=== PATIENT | female | born 2000 | race Caucasian/White ===

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

== ENCOUNTER 2018-01-02 08:09 | Emergency (ER) | payer SELFPAY ==
[2018-01-02 08:13] VITALS: BP 130/69
--- NOTE | 2018-01-02 08:29 | ER Document Report ---
HPI - HPI Time Seen by Provider: 01/02/18 08:18 Pain Level: 4 Notes: Patient is a 17-year-old female with no significant past medical history who presents to the ED complaining of bilateral intermittent ear pain and sore throat over the last couple weeks. Patient states that she was given a steroid taper that she has since finished from her visit 10 days ago. Patient states that she will hear popping and clicking to her ears with the left worse than the right occasional pain. Patient states that she does have some soreness of the throat more so when she swallows. She has not noticed any exudates or swelling otherwise. Denies any drug allergies. She is able to eat and drink without difficulty aside from the soreness. She is urinating normally. Patient does admit to smoking. No excessive fatigue. Denies any headache, fever , neck pain, dizziness, URI, chest pain, palpitations, syncope, cough, shortness of breath, wheeze, dyspnea, abdominal pain, nausea/vomiting/diarrhea, urinary retention, dysuria, hematuria, or rash. Pt requesting a strep test. - ROS Systems Reviewed and Negative: Yes All other systems reviewed and negative - EENT EENT: REPORTS: Sore Throat, Ear Pain - REPRODUCTIVE Reproductive: DENIES: : Past Medical History - Social History Smoking Status: Current Some Day Smoker Chew tobacco use (# tins/day): No Frequency of alcohol use: Occasional Drug Abuse: Marijuana Family History: Reviewed & Not Pertinent Patient has suicidal ideation: No Patient has homicidal ideation: No Renal/ Medical History: Denies: Hx Peritoneal Dialysis Psychiatric Medical History: Reports: Hx Depression - Immunizations Immunizations up to date: Yes Hx Diphtheria, Pertussis, Tetanus Vaccination: Yes Vertical Provider Document - CONSTITUTIONAL Agree With Documented VS: Yes Notes: PHYSICAL EXAMINATION: GENERAL: Well-appearing, well-nourished and in no acute distress. A&Ox4. Answers questions appropriately. Moves comfortably w/o notable distress HEAD: Atraumatic, normocephalic. EYES: Pupils equal round and reactive to light, extraocular movements intact, sclera anicteric, conjunctiva are normal. ENT: EAC clear b/l. TM's intact b/l without erythema, fluid, or perforation. There is some dullness b/l. Nares patent and with clear discharge. oropharynx mild erythema without exudates. 1+ tonsilar hypertrophy with mild erythema no exudate. No palatine shift. Uvula midline. No tongue protrusion. No drooling , hoarseness, or airway compromise. Moist mucous membranes. No sinus tenderness. NECK: Normal range of motion, supple without lymphadenopathy. No rigidity/ meningismus. LUNGS: Breath sounds clear to auscultation bilaterally and equal. No wheezes rales or rhonchi. No retractions HEART: Regular rate and rhythm without murmurs, rubs, gallops. ABDOMEN: Soft, nontender, nondistended abdomen. No guarding, no rebound. No masses appreciated. Normal bowel sounds present. No CVA tenderness bilaterally. No hepatosplenomegaly. NEUROLOGICAL: Normal speech, normal gait. PSYCH: Normal mood, normal affect. SKIN: Warm, Dry, normal turgor, no rashes or lesions noted. - INFECTION CONTROL TRAVEL OUTSIDE OF THE [place] IN LAST 30 DAYS: No Course - Re-evaluation Re-evalutation: 01/02/18 09:13 Patient is an afebrile, well-hydrated, 17-year-old female who presents to the ED with otalgia, suspect eustachian tube dysfunction, acute pharyngitis which I suspect to be viral. Vitals are acceptable without significant tachycardia, tachypnea, or hypoxia. PE is otherwise unremarkable. Rapid strep was negative with a throat culture pending. No further labs or imaging warranted at this time. Patient is nontoxic-appearing and is tolerating p.o. without difficulty. Patient has recently finished a steroid taper from previous visit. Her lungs are clear to auscultation bilaterally. Low suspicion for any meningitis, sepsis , peritonsillar/pharyngeal abscess, respiratory compromise, Cornelius's, or other emergent systemic condition at this time. Patient is aware this condition can change from initial presentation and she needs to monitor symptoms closely. Conservative measures otherwise for symptoms. Recheck with your PCM in 3-5 days. Consider consult with ENT. Return to the ED with any worsening/ concerning symptoms otherwise as reviewed in discharge. Patient is in agreement. - Vital Signs Vital signs: Temp Pulse Resp BP Pulse Ox 98.7 F 88 18 130/69 H 95 01/02/18 08:11 01/02/18 08:11 01/02/18 08:11 01/02/18 08:11 01/02/18 08:11 Discharge - Discharge Clinical Impression: Otalgia of both ears Acute pharyngitis Qualifiers: Pharyngitis/tonsillitis etiology: unspecified etiology Qualified Code(s): J02.9 - Acute pharyngitis, unspecified Condition: Stable Disposition: HOME, SELF-CARE Instructions: Sore Throat ([facility]) Additional Instructions: Maintain adequate fluid intake Take meds as directed Salt water gargles, throat sprays, mouthwash rinse, peroxide gargles tylenol/ibuprofen as needed New toothbrush tomorrow evening over the counter cold medication as needed for symptoms (i.e. mucinex with sudafed) F/u: with your PCM in 3-5 days for a recheck Consider consult with ENT for ongoing/worsening symptoms Return to the ED with any fever, worsening pain, chest pain, neck pain/stiffness , shortness of breath, cough, drooling, trouble swallowing/breathing, abdominal pain, n/v/d, rash, or worsening/concerning symptoms otherwise. Forms: Elevated Blood Pressure, Smoking Cessation Education Referrals: JANIE RAMIREZ DO [ASSOCIATE] - Follow up as needed LEONEL NOLAN MD [Primary Care Provider] - Follow up in 3-5 days
== END 2018-01-02 09:23 | disposition home or self-care (01) ==
LOC: ER 08:09
DX: J02.9 Acute pharyngitis, unspecified (principal); H92.03 Otalgia, bilateral; F17.200 Nicotine dependence, unspecified, uncomplicated
CPT/HCPCS: 87070; 87880; 99283

== ENCOUNTER 2018-04-16 07:46 | Emergency (ER) | payer MEDICAID ==
--- NOTE | 2018-04-16 09:20 | ER Document Report ---
Addendum entered and electronically signed by VERONIKA QUISPE PA-C 04/16/18 10:22: Course - Re-evaluation Re-evalutation: 04/16/18 10:22 pt did end up providing chlam/raimundo urine sample, but does not want pre-treated. - Vital Signs Vital signs: Temp Pulse Resp BP Pulse Ox 99.2 F 89 16 135/66 H 98 04/16/18 07:56 04/16/18 07:56 04/16/18 07:56 04/16/18 07:56 04/16/18 07:56 - Laboratory Laboratory results interpreted by me: 04/16/18 07:50 Ur Leukocyte Esterase MODERATE H Original Note: ED General - General Chief Complaint: Abdominal Pain Stated Complaint: PELVIC PAIN Time Seen by Provider: 04/16/18 08:47 Primary Care Provider: LEONEL NOLAN MD [Primary Care Provider] - Follow up as needed TRAVEL OUTSIDE OF THE [place] IN LAST 30 DAYS: No - HPI Notes: Patient is a 17-year-old female approximately 15 weeks who presents the emergency department complaining of feeling pelvic tightness this morning. Patient states that she has had intermittent pain for the last 1-2 weeks. Patient states that she did have some spotting several days ago. She has [facility]. Patient states that the tightness has since improved. She is eating and drinking without difficulty. She is urinating normally and having normal bowel movements. She has not had any other vaginal discharge, odor, or bleeding. Patient has no concern of STD or STI. Denies drug allergies. Denies any headache, fever, neck pain, URI, sore throat, chest pain, palpitations, syncope, cough, shortness of breath, wheeze, dyspnea, nausea/vomiting/diarrhea, urinary retention, dysuria, hematuria, back pain, loss of control of bowel or bladder, numbness/tingling, saddle anesthesia, muscle paralysis/weakness, or rash. - Related Data Allergies/Adverse Reactions: No Known Allergies Allergy (Verified 04/16/18 07:57) Past Medical History - Social History Smoking Status: Former Smoker Chew tobacco use (# tins/day): No Frequency of alcohol use: None Drug Abuse: None Family History: Reviewed & Not Pertinent Patient has suicidal ideation: No Patient has homicidal ideation: No Renal/ Medical History: Denies: Hx Peritoneal Dialysis Psychiatric Medical History: Reports: Hx Depression - Immunizations Immunizations up to date: Yes Hx Diphtheria, Pertussis, Tetanus Vaccination: Yes Review of Systems - Review of Systems -: Yes All other systems reviewed and negative Physical Exam - Vital signs Vitals: Temp Pulse Resp BP Pulse Ox 99.2 F 89 16 135/66 H 98 04/16/18 07:56 04/16/18 07:56 04/16/18 07:56 04/16/18 07:56 04/16/18 07:56 - Notes Notes: PHYSICAL EXAMINATION: GENERAL: Well-appearing, well-nourished and in no acute distress. HEAD: Atraumatic, normocephalic. EYES: Pupils equal round and reactive to light, extraocular movements intact, sclera anicteric, conjunctiva are normal. ENT: Nares patent and without discharge. oropharynx clear without exudates. No tonsilar hypertrophy or erythema. Moist mucous membranes. NECK: Normal range of motion, supple without lymphadenopathy LUNGS: Breath sounds clear to auscultation bilaterally and equal. No wheezes rales or rhonchi. HEART: Regular rate and rhythm without murmurs, rubs, gallops. ABDOMEN: Soft, nontender, nondistended abdomen. No guarding, no rebound. No masses appreciated. Normal bowel sounds present. No CVA tenderness bilaterally. : deferred, pt declined. Musculoskeletal: FROM to passive/active. Strength 5+/5. Extremities: No cyanosis, clubbing, or edema b/l. Peripheral pulses 2+. Capillary refill less than 3 seconds. NEUROLOGICAL: Normal speech, normal gait. PSYCH: Normal mood, normal affect. SKIN: Warm, Dry, normal turgor, no rashes or lesions noted. Course - Re-evaluation Re-evalutation: 04/16/18 10:16 Patient is an afebrile, well-hydrated, 17-year-old female who presents to the ED with resolved pelvic pain, yeast infxn, and intrauterine . Vitals are acceptable without any significant tachycardia, tachypnea, or hypoxia. PE is otherwise unremarkable. UA most likely contaminate based on her H&P with UC pending. See TVUS and wet mount. Pt declined any treatment for chlam/raimundo and did not want to perform any testing. Patient is nontoxic-appearing is tolerating p.o. without any difficulties. No other labs or imaging warranted at this time based on H&P. Abd is soft and non-tender. Low suspicion/risk for acute appendicitis, bowel obstruction, acute cholecystitis, acute cholangitis, perforated diverticulitis, incarcerated hernia, pancreatitis, perforated ulcer, peritonitis, sepsis, pelvic inflammatory disease, ectopic , tubo- ovarian abscess, ovarian torsion, or other systemic emergent condition at this time. Patient is aware that her condition can change from initial presentation and she needs to monitor symptoms closely and seek medical attention if any acute changes. Rx for clotrimazole vaginal. Conservative measures otherwise for symptoms. Recheck with your PCM/OBGYN in 3-5 days. Return to the ED with any worsening/concerning symptoms otherwise as reviewed in discharge. Patient is in agreement. - Vital Signs Vital signs: Temp Pulse Resp BP Pulse Ox 99.2 F 89 16 135/66 H 98 04/16/18 07:56 04/16/18 07:56 04/16/18 07:56 04/16/18 07:56 04/16/18 07:56 - Laboratory Laboratory results interpreted by me: 04/16/18 07:50 Ur Leukocyte Esterase MODERATE H Discharge - Discharge Clinical Impression: Vaginal yeast infection, Pelvic pain Condition: Stable Disposition: HOME, SELF-CARE Instructions: Pelvic Pain in ([facility]), Vaginal Yeast Infection ([facility]) Additional Instructions: Maintain fluid intake Proper hygienic technique Keep the skin clean Safe sexual practices with condoms everytime Tylenol as needed F/u with your PCM/OBGYN in 3-5 days for a recheck Return to the ED with any development of ABBOTT/fever, trouble with vision, eye redness, worsening pain, urethral discharge, urinary retention, blood in the urine, flank pain, abdominal pain, n/v, Chest Pain, shortness of breath, joint pains, trouble breathing, or any other worsening/concerning symptoms as needed otherwise. Prescriptions: Clotrimazole 1 applic VG DAILY #1 cream.appl Forms: Elevated Blood Pressure Referrals: LEONEL NOLAN MD [Primary Care Provider] - Follow up as needed [facility] [Provider Group] - Follow up as needed
[2018-04-16 09:24] LABS: APPEARANCE,URINE CLOUDY; BILIRUBIN,URINE NEGATIVE (NEGATIVE); COLOR,URINE YELLOW; GLUCOSE, URINE NEGATIVE (NEGATIVE); KETONES,URINE NEGATIVE (NEGATIVE); LEUKOCYTE ESTERASE,URINE MODERATE (NEGATIVE); NITRITE,URINE NEGATIVE (NEGATIVE); PROTEIN,URINE NEGATIVE (NEGATIVE); URINE SPECIFIC GRAVITY 1.015; UROBILINOGEN,URINE NEGATIVE mg/dL (<2.0)
[2018-04-16 09:26] LABS: BACTERIA (WET MOUNT) 3+ BACTERIA SEEN; EPITHELIALS (WET MOUNT) 4+ EPITHELIALS SEEN; RBCS (WET MOUNT) RARE RBCS SEEN; T.VAGINALIS (WET MOUNT) NO TRICHOMONAS SEEN; WBCS (WET MOUNT) 2+ WBCS SEEN; YEAST (WET MOUNT) YEAST SEEN
--- NOTE | 2018-04-16 10:14 | RADIOLOGY REPORT (SQ) ---
EXAM DESCRIPTION: U/S OB 14+ TA/1 GEST W/DOPPLER COMPLETED DATE/TIME: 04/16/2018 10:00 am REASON FOR STUDY: pelvic pain, approx 15 weeks COMPARISON: None. TECHNIQUE: Static and Dynamic grayscale imaging performed of gravid uterus using transabdominal appr oach. Additional selected color Doppler and spectral images recorded. All stored on PACS. LIMITATIONS: None. FINDINGS: FETUSES SEEN:1 EGA: 15 weeks 0 days Calculated using BPD,FL,HC,AC documented on images. No discrepancy with clinica l dates. RAMU: 10/08/2018 EFW: Not calculated PERCENTILE: Not calculated CHERELLE: Largest pocket 3 cm PLACENTA: Posterior grade 1 PRESENTATION: Breech ANATOMY: HEART RATE: 157 beats per minute. FOUR CHAMBER HEART: Visualized. THREE VESSEL CORD: Yes. CORD INSERTION: Visualized. KIDNEYS AND BLADDER: Not well seen STOMACH: Visualized. Appears normal. SPINE: Normal as visualized. BRAIN AND LATERAL VENTRICLES: Visualized. Appear normal. OTHER: No other significant finding. MATERNAL ADNEXA: Maternal ovaries not visualized. CERVICAL LENGTH: 2.1 cm Closed. OTHER: No other significant finding. IMPRESSION: LIVING INTRAUTERINE . ESTIMATED GESTATIONAL AGE 15 weeks 0 days NO VISUALIZED ANOMALIES. Trimester of : Second trimester - 13 weeks 1 day to 27 weeks 6 days. TECHNICAL DOCUMENTATION: JOB ID: [id number] [employer]- All Rights Reserved Reading location - IP/workstation name: [email or web address]
[2018-04-16 10:36] VITALS: BP 130/57
[2018-04-16 11:46] LABS: CHLAM PCR NOT DETECTED (NOT DETECT); GON PCR NOT DETECTED (NOT DETECT)
== END 2018-04-16 10:38 | disposition home or self-care (01) ==
LOC: ER 07:46
DX: O98.812 Other maternal infectious and parasitic diseases complicating pregnancy, second trimester (principal); B37.3 Candidiasis of vulva and vagina; R10.2 Pelvic and perineal pain; Z3A.15 15 weeks gestation of pregnancy
CPT/HCPCS: 76805; 81001; 87086; 87210; 87491; 87591; 93976; 99284

== ENCOUNTER 2018-05-29 00:53 | Outpatient (CLI) | payer MEDICAID ==
[2018-05-29 02:04] LABS: APPEARANCE,URINE CLEAR; BILIRUBIN,URINE NEGATIVE (NEGATIVE); COLOR,URINE YELLOW; GLUCOSE, URINE NEGATIVE (NEGATIVE); KETONES,URINE NEGATIVE (NEGATIVE); LEUKOCYTE ESTERASE,URINE NEGATIVE (NEGATIVE); NITRITE,URINE NEGATIVE (NEGATIVE); PROTEIN,URINE NEGATIVE (NEGATIVE); URINE SPECIFIC GRAVITY 1.014; UROBILINOGEN,URINE NEGATIVE mg/dL (<2.0)
[2018-05-29 02:40] LABS: URINE AMPHETAMINES SCREEN NEGATIVE; URINE BARBITURATES SCREEN NEGATIVE; URINE BENZODIAZEPINES SCREEN NEGATIVE; URINE COCAINE SCREEN NEGATIVE; URINE METHADONE SCREEN NEGATIVE; URINE PHENCYCLIDINE SCREEN NEGATIVE
[2018-05-29 02:50] LABS: URINE MARIJUANA (THC) SCREEN UNCONFIRMED POSITIVE
== END 2018-05-29 02:38 | disposition home or self-care (01) ==
LOC: LC 00:53
PROVIDERS: ATTEND Obstetrics & Gynecology Gynecology
PROC: 4A1HXCZ Monitoring of Products of Conception, Cardiac Rate, External Approach (ICD-10-PCS; principal; 2018-05-29)
DX: O26.892 Other specified pregnancy related conditions, second trimester (principal); R10.9 Unspecified abdominal pain; Z3A.20 20 weeks gestation of pregnancy
CPT/HCPCS: 80307; 81001

== ENCOUNTER 2018-07-08 16:51 | Outpatient (CLI) | payer MEDICAID ==
[2018-07-08 17:37] LABS: APPEARANCE,URINE CLOUDY; BILIRUBIN,URINE NEGATIVE (NEGATIVE); COLOR,URINE YELLOW; GLUCOSE, URINE NEGATIVE (NEGATIVE); KETONES,URINE NEGATIVE (NEGATIVE); LEUKOCYTE ESTERASE,URINE MODERATE (NEGATIVE); NITRITE,URINE NEGATIVE (NEGATIVE); PROTEIN,URINE NEGATIVE (NEGATIVE); URINE SPECIFIC GRAVITY 1.017; UROBILINOGEN,URINE NEGATIVE mg/dL (<2.0)
[2018-07-08] MEDS ORDERED: ONDANSETRON HCL INJ/PF 4 MG/2 ML SDV IV ONE (17:43)
[2018-07-08] MEDS ORDERED: RINGERS SOLUTION,LACTATED 1,000 ML IV PRN (17:43)
[2018-07-08 17:46] LABS: URINE AMPHETAMINES SCREEN NEGATIVE; URINE BARBITURATES SCREEN NEGATIVE; URINE BENZODIAZEPINES SCREEN NEGATIVE; URINE COCAINE SCREEN NEGATIVE; URINE METHADONE SCREEN NEGATIVE; URINE PHENCYCLIDINE SCREEN NEGATIVE
[2018-07-08 17:51] LABS: URINE MARIJUANA (THC) SCREEN UNCONFIRMED POSITIVE
[2018-07-08 18:28] LABS: ABSOLUTE LYMPHOCYTES (AUTO) 2.1 10^3/uL (0.5-4.7); ABSOLUTE MONOCYTES (AUTO) 0.8 10^3/uL (0.1-1.4); ABSOLUTE NEUT (AUTO) 7.6 10^3/uL (1.7-8.2); BASOPHILS % (AUTO) 0.3 % (0-2); EOSINOPHILS % (AUTO) 0.4 % (0-6); HEMATOCRIT 31.5 % (36.0-47.0); HEMOGLOBIN 10.7 g/dL (12.0-15.5); LYMPHOCYTES % (AUTO) 20.1 % (13-45); MEAN CORPUSCULAR HEMOGLOBIN 28.1 pg (27.0-33.4); MEAN CORPUSCULAR HGB CONC 33.8 g/dL (32.0-36.0); MEAN CORPUSCULAR VOLUME 83 fl (80-97); MONOCYTES % (AUTO) 7.2 % (3-13); PLATELET COUNT 252 10^3/uL (150-450); RED BLOOD COUNT 3.79 10^6/uL (3.72-5.28); RED CELL DISTRIBUTION WIDTH 12.5 % (11.5-14.0); TOTAL CELLS COUNTED % (AUTO) 100 %; WHITE BLOOD COUNT 10.5 10^3/uL (4.0-10.5)
== END 2018-07-08 19:12 | disposition home or self-care (01) ==
LOC: LC 16:51
PROVIDERS: ATTEND Obstetrics & Gynecology
PROC: 4A1HXCZ Monitoring of Products of Conception, Cardiac Rate, External Approach (ICD-10-PCS; principal; 2018-07-08)
DX: O47.02 False labor before 37 completed weeks of gestation, second trimester (principal); Z3A.26 26 weeks gestation of pregnancy
CPT/HCPCS: 36415; 80307; 81001; 85025

== ENCOUNTER 2018-08-09 17:16 | Emergency (ER) | payer MEDICAID ==
[2018-08-09 17:27] VITALS: BP 123/71
== END 2018-08-09 20:42 | disposition left against medical advice (07) ==
LOC: ER 17:16
DX: Z53.21 Procedure and treatment not carried out due to patient leaving prior to being seen by health care provider (principal)

== ENCOUNTER 2018-09-25 10:44 | Outpatient (CLI) | payer MEDICAID ==
[2018-09-25 12:22] LABS: APPEARANCE,URINE SLIGHTLY-CLOUDY; BILIRUBIN,URINE NEGATIVE (NEGATIVE); COLOR,URINE YELLOW; GLUCOSE, URINE NEGATIVE (NEGATIVE); KETONES,URINE NEGATIVE (NEGATIVE); LEUKOCYTE ESTERASE,URINE MODERATE (NEGATIVE); NITRITE,URINE NEGATIVE (NEGATIVE); PROTEIN,URINE NEGATIVE (NEGATIVE); URINE SPECIFIC GRAVITY 1.014; UROBILINOGEN,URINE NEGATIVE mg/dL (<2.0)
[2018-09-25 13:10] LABS: URINE AMPHETAMINES SCREEN NEGATIVE; URINE BARBITURATES SCREEN NEGATIVE; URINE BENZODIAZEPINES SCREEN NEGATIVE; URINE COCAINE SCREEN NEGATIVE; URINE MARIJUANA (THC) SCREEN NEGATIVE; URINE METHADONE SCREEN NEGATIVE; URINE PHENCYCLIDINE SCREEN NEGATIVE
--- NOTE | 2018-09-25 13:59 | Non Stress Test Report ---
Non Stress Test Datetime Report Generated by CPN: 09/25/2018 13:59 DEMOGRAPHIC EGA NST: 37.4 INDICATION Indication for Study: Other Indication for Study (NST) Other: lc MONITORING Monitor Explained: Monitor Explained; Test Explained; Patient Verbalized Understanding Time on Monitor: 09/25/2018 12:30 Time off Monitor: 09/25/2018 13:56 NST Duration: 86 NST INTERVENTIONS NST Interventions: PO Hydration; Reposition Patient Physician Notified NST: J Valladares CNM BABY A: [id number] BABY A Movement : Present Contraction Frequency : 0 FHR Baseline : 125 Accelerations : 15X15 Decelerations : None Variability : Moderate 6-25bpm NST Review: Meets Criteria for Reactive NST NST Review and Verified By : JENNIFER Ugarte Results: Reactive NST REPORT Report Trigger: Send Report
== END 2018-09-25 14:15 | disposition home or self-care (01) ==
LOC: LC 10:44
PROVIDERS: ATTEND Obstetrics & Gynecology
PROC: 4A1HXCZ Monitoring of Products of Conception, Cardiac Rate, External Approach (ICD-10-PCS; principal; 2018-09-25)
DX: O47.1 False labor at or after 37 completed weeks of gestation (principal); Z3A.37 37 weeks gestation of pregnancy
CPT/HCPCS: 59025; 80307; 81001

== ENCOUNTER 2018-10-07 22:05 | Outpatient (CLI) | payer MEDICAID ==
[2018-10-07 22:31] LABS: APPEARANCE,URINE CLEAR; BILIRUBIN,URINE NEGATIVE (NEGATIVE); COLOR,URINE YELLOW; GLUCOSE, URINE NEGATIVE (NEGATIVE); KETONES,URINE NEGATIVE (NEGATIVE); LEUKOCYTE ESTERASE,URINE NEGATIVE (NEGATIVE); NITRITE,URINE NEGATIVE (NEGATIVE); PROTEIN,URINE NEGATIVE (NEGATIVE); URINE SPECIFIC GRAVITY 1.013
[2018-10-07 22:53] LABS: URINE AMPHETAMINES SCREEN NEGATIVE; URINE BARBITURATES SCREEN NEGATIVE; URINE BENZODIAZEPINES SCREEN NEGATIVE; URINE COCAINE SCREEN NEGATIVE; URINE MARIJUANA (THC) SCREEN NEGATIVE; URINE METHADONE SCREEN NEGATIVE; URINE PHENCYCLIDINE SCREEN NEGATIVE
[2018-10-07] MEDS: RINGERS SOLUTION,LACTATED 1,000 ML IV PRN (23:44)
--- NOTE | 2018-10-08 02:31 | RADIOLOGY REPORT (SQ) ---
EXAM DESCRIPTION: US BIOPHYSICAL PROFILE WITHOUT NON STRESS TEST COMPLETED DATE/TME: 10/08/2018 00:47 CLINICAL HISTORY: 18 years, Female, non reactive NST COMPARISON: None. TECHNIQUE: Standard biophysical profile LIMITATIONS: None. FINDINGS: breathing: Score 2 of 2 tone: Score 2 of 2 movement: Score 2 of 2 Amniotic fluid volume: Score 2 of 2 IMPRESSION: biophysical profile score 8 of 8 copyright 2010 [employer]- All Rights Reserved
[2018-10-08] MEDS: RINGERS SOLUTION,LACTATED 1,000 ML IV PRN (02:58)
--- NOTE | 2018-10-08 04:11 | Non Stress Test Report ---
Non Stress Test Datetime Report Generated by CPN: 10/08/2018 04:11 DEMOGRAPHIC EGA NST: 39.6 INDICATION Indication for Study: Ordered by Provider; Other Indication for Study (NST) Other: LC URINE RESULTS Urine Protein, NST: Negative Urine Ketones - NST: Negative Urine Glucose - NST: Negative Urine Blood - NST: Negative MONITORING Monitor Explained: Monitor Explained; Test Explained; Patient Verbalized Understanding Time on Monitor: 10/07/2018 23:48 Time off Monitor: 10/08/2018 00:12 NST Duration: 24 NST INTERVENTIONS NST Interventions: PO Hydration; IV Fluids; Other NST Interventions Other: popsicle Physician Notified NST: Younger BABY A: [id number] BABY A Movement : Present Contraction Frequency : OCC FHR Baseline : 135 Accelerations : 15X15 Decelerations : None Variability : Moderate 6-25bpm NST Review: Questionable if Meets Criteria for Reactive NST NST Review and Verified By : Chalman, A. RN NST Results: Questionable NST COMMENTS NST Comments: 1 15 x 15 noted NST REPORT Report Trigger: Send Report
== END 2018-10-08 03:25 | disposition home or self-care (01) ==
LOC: LC 22:05
PROVIDERS: ATTEND Obstetrics & Gynecology
PROC: 4A1HXCZ Monitoring of Products of Conception, Cardiac Rate, External Approach (ICD-10-PCS; principal; 2018-10-07)
DX: O47.1 False labor at or after 37 completed weeks of gestation (principal); Z3A.39 39 weeks gestation of pregnancy
CPT/HCPCS: 59025; 76819; 80307; 81005

== ENCOUNTER 2019-04-18 09:04 | Emergency (ER) | payer MEDICAID ==
[2019-04-18 09:54] LABS: APPEARANCE,URINE CLEAR; BILIRUBIN,URINE NEGATIVE (NEGATIVE); COLOR,URINE YELLOW; GLUCOSE, URINE NEGATIVE (NEGATIVE); KETONES,URINE TRACE mg/dL (NEGATIVE); LEUKOCYTE ESTERASE,URINE TRACE (NEGATIVE); NITRITE,URINE NEGATIVE (NEGATIVE); PROTEIN,URINE NEGATIVE (NEGATIVE); URINE SPECIFIC GRAVITY 1.016; UROBILINOGEN,URINE NEGATIVE mg/dL (<2.0)
[2019-04-18] MEDS ORDERED: ACETAMINOPHEN 325 MG TABLET PO ONE (12:18)
[2019-04-18] MEDS ORDERED: NORMAL SALINE 1000 ML 1,000 ML IV ONE (12:22)
[2019-04-18 12:28] LABS: ABSOLUTE BASOPHILS # (AUTO) 0.1 10^3/uL (0.0-0.2); ABSOLUTE LYMPHOCYTES (AUTO) 2.2 10^3/uL (0.5-4.7); ABSOLUTE MONOCYTES (AUTO) 0.9 10^3/uL (0.1-1.4); ABSOLUTE NEUT (AUTO) 6.9 10^3/uL (1.7-8.2); BASOPHILS % (AUTO) 0.5 % (0-2); EOSINOPHILS % (AUTO) 0.3 % (0-6); HEMOGLOBIN 11.1 g/dL (12.0-15.5); LYMPHOCYTES % (AUTO) 21.7 % (13-45); MEAN CORPUSCULAR HEMOGLOBIN 27.7 pg (27.0-33.4); MEAN CORPUSCULAR HGB CONC 34.9 g/dL (32.0-36.0); MEAN CORPUSCULAR VOLUME 80 fl (80-97); MONOCYTES % (AUTO) 8.5 % (3-13); PLATELET COUNT 276 10^3/uL (150-450); RED BLOOD COUNT 4.02 10^6/uL (3.72-5.28); RED CELL DISTRIBUTION WIDTH 13.6 % (11.5-14.0); TOTAL CELLS COUNTED % (AUTO) 100 %
[2019-04-18 12:50] LABS: ANION GAP 8 (5-19); BLOOD UREA NITROGEN 5 mg/dL (7-20); CALCIUM 9.1 mg/dL (8.4-10.2); CARBON DIOXIDE 24 mmol/L (22-30); CHLORIDE 105 mmol/L (98-107); GLUCOSE 89 mg/dL (75-110)
--- NOTE | 2019-04-18 13:32 | RADIOLOGY REPORT (SQ) ---
EXAM DESCRIPTION: U/S OB TRANSVAGINAL W/O DOP COMPLETED DATE/TIME: 04/18/2019 1:22 pm REASON FOR STUDY: , bleeding, no previous US COMPARISON: None. TECHNIQUE: Transabdominal static and realtime grayscale images acquired of the pelvis. Additional se lected spectral and color Doppler images recorded. All images stored on PACs. bHCG: Pending. CLINICAL DATES: Not reported. LIMITATIONS: None. FINDINGS: FETUS: Single Living intrauterine . ULTRASOUND EGA: 13 week 3 day ULTRASOUND RAMU: 10/21/2019 EFW: Not applicable less than 20 weeks. CRL: 7.3 cm FHR: 150 beats per minute. SURVEY: Too early to assess. AMNIOTIC FLUID: Adequate amount. PLACENTA: Developing. SUBCHORIONIC BLEED: No. SIZE OF BLEED: Not applicable. UTERUS: No masses. No anomalies. CERVICAL LENGTH: 3.5 cm Closed. RIGHT ADNEXA: Normal ovary with normal vascular flow. No adnexal free fluid. No adnexal masses. LEFT ADNEXA: Ovary not identified due to poor acoustical window. No adnexal free fluid. No adnexal masses. FREE FLUID: None. OTHER: No other significant finding. IMPRESSION: LIVING INTRAUTERINE . EGA 13 week 3 day Trimester of : Second trimester - 13 weeks 1 day to 27 weeks 6 days. TECHNICAL DOCUMENTATION: JOB ID: [id number] 2010 [employer]- All Rights Reserved Reading location - IP/workstation name: [email or web address]
[2019-04-18 14:37] VITALS: BP 118/68
--- NOTE | 2019-04-18 18:28 | ER Document Report ---
Entered by HOLGER CARDENAS SCRIBE 04/18/19 1046 Acting as scribe for:CLAYTON MAGAÑA DO ED GI/ - General Chief Complaint: Vaginal Bleeding Stated Complaint: VAGINAL BLEEDING Time Seen by Provider: 04/18/19 10:14 Primary Care Provider: [facility] [Provider Group] - Follow up in 1 week Mode of Arrival: Ambulatory Information source: Patient Notes: This 18-year-old female patient presents to the emergency department today with complaints of vaginal spotting. Patient states that she is 13 weeks and 3 days . Patient states she has had "on and off" spotting for the last few days. Patient states she has not had an ultrasound performed she has "just heard the heartbeat". Patient denies fevers. TRAVEL OUTSIDE OF THE [place] IN LAST 30 DAYS: No - Related Data Allergies/Adverse Reactions: No Known Allergies Allergy (Verified 10/08/18 11:33) Home Medications: vits Past Medical History - General Information source: Patient - Social History Smoking Status: Former Smoker Cigarette use (# per day): No Chew tobacco use (# tins/day): No Frequency of alcohol use: None Drug Abuse: None Lives with: Family Family History: Reviewed & Not Pertinent Patient has suicidal ideation: No Patient has homicidal ideation: No Psychiatric Medical History: Reports: Hx Depression - Immunizations Immunizations up to date: Yes Hx Diphtheria, Pertussis, Tetanus Vaccination: Yes Review of Systems - Review of Systems Constitutional: denies: Fever EENT: No symptoms reported Cardiovascular: No symptoms reported Respiratory: No symptoms reported Gastrointestinal: See HPI, Abdominal pain - cramping Genitourinary: No symptoms reported Female Genitourinary: See HPI, , Vaginal bleeding - spotting Musculoskeletal: No symptoms reported Skin: No symptoms reported Hematologic/Lymphatic: No symptoms reported Neurological/Psychological: No symptoms reported -: Yes All other systems reviewed and negative Physical Exam - Vital signs Vitals: Temp Pulse Resp BP Pulse Ox 98.7 F 92 20 138/68 H 98 04/18/19 09:14 04/18/19 09:14 04/18/19 09:14 04/18/19 09:14 04/18/19 09:14 - Notes Notes: Physical Exam: General: Alert, appears well. HEENT: Normocephalic. Atraumatic. PERRL. Extraocular movements intact. Oropharynx clear. Neck: Supple. Non-tender. Respiratory: No respiratory distress. Clear and equal breath sounds bilaterally. Cardiovascular: Regular rate and rhythm. Abdominal: No abdominal tenderness with palpation, tenderness to palpation over the right inguinal area, obese. No distension. Normal Bowel Sounds. Back: No gross abnormalities. Extremities: Moves all four extremities. Upper extremities: Normal inspection. Normal ROM. Lower extremities: Normal inspection. No edema. Normal ROM. Neurological: Normal cognition. AAOx4. Normal speech. Psychological: Normal affect. Normal Mood. Skin: Warm. Dry. Normal color. Course - Re-evaluation Re-evalutation: 04/18/19 18:27 Patient with no acute findings on blood work. Ultrasound showing 13-week and 3- day . No complications. Pain likely from round ligament. No further bleeding. No concern for STDs. Patient is O+. Stable for discharge. Return if any worsening or concerning symptoms. Stable for discharge. Follow-up with OB. Understands agrees with plan. - Vital Signs Vital signs: Temp Pulse Resp BP Pulse Ox 98.1 F 81 18 118/68 98 04/18/19 14:35 04/18/19 14:35 04/18/19 14:35 04/18/19 14:35 04/18/19 14:35 - Laboratory Result Diagrams: 04/18/19 11:33 04/18/19 11:33 Laboratory results interpreted by me: 04/18/19 04/18/19 04/18/19 09:42 09:42 11:33 Hgb Hct Sodium 136.9 L BUN 5 L Creatinine 0.42 L Beta HCG, Quant 88972.00 H Urine Ketones TRACE H Ur Leukocyte Esterase TRACE H Urine HCG, Qual POSITIVE H 04/18/19 11:33 Hgb 11.1 L Hct 32.0 L Sodium BUN Creatinine Beta HCG, Quant Urine Ketones Ur Leukocyte Esterase Urine HCG, Qual - Diagnostic Test Radiology reviewed: Reports reviewed Discharge - Discharge Clinical Impression: Bleeding in early Condition: Stable Disposition: HOME, SELF-CARE Instructions: Bleeding During Early ([facility]), ([facility]) Referrals: [facility] [Provider Group] - Follow up in 1 week I personally performed the services described in the documentation, reviewed and edited the documentation which was dictated to the scribe in my presence, and it accurately records my words and actions.
== END 2019-04-18 14:35 | disposition home or self-care (01) ==
LOC: ER 09:04
DX: O26.851 Spotting complicating pregnancy, first trimester (principal); O26.891 Other specified pregnancy related conditions, first trimester; R10.9 Unspecified abdominal pain; Z3A.13 13 weeks gestation of pregnancy; Z79.899 Other long term (current) drug therapy; Z87.891 Personal history of nicotine dependence
CPT/HCPCS: 99284; 96360; 86900; 86901; 36415; 84702; 85025; 81025; 80048; 81001; 76817; J3490; J7030

== ENCOUNTER 2019-10-01 19:19 | Inpatient (IN) | payer MEDICAID ==
[2019-10-01 19:59] LABS: APPEARANCE,URINE SLIGHTLY-CLOUDY; BILIRUBIN,URINE NEGATIVE (NEGATIVE); COLOR,URINE YELLOW; GLUCOSE, URINE NEGATIVE (NEGATIVE); KETONES,URINE NEGATIVE (NEGATIVE); LEUKOCYTE ESTERASE,URINE SMALL (NEGATIVE); NITRITE,URINE NEGATIVE (NEGATIVE); PROTEIN,URINE NEGATIVE (NEGATIVE); URINE SPECIFIC GRAVITY 1.011
[2019-10-01 20:18] LABS: URINE AMPHETAMINES SCREEN NEGATIVE; URINE BARBITURATES SCREEN NEGATIVE; URINE BENZODIAZEPINES SCREEN NEGATIVE; URINE COCAINE SCREEN NEGATIVE; URINE MARIJUANA (THC) SCREEN NEGATIVE; URINE METHADONE SCREEN NEGATIVE; URINE PHENCYCLIDINE SCREEN NEGATIVE
[2019-10-01] MEDS ORDERED: RINGERS SOLUTION,LACTATED 1,000 ML IV ONE (20:32)
[2019-10-01] MEDS ORDERED: RINGERS SOLUTION,LACTATED 1,000 ML IV PRN (20:32)
[2019-10-01] MEDS ORDERED: PENICILLIN G POTASSIUM 5,000,000 UNIT in DEXTROSE 5%-WATER 100 ML IV ONE (21:00)
[2019-10-01 21:51] LABS: ABSOLUTE LYMPHOCYTES (AUTO) 2.5 10^3/uL (0.5-4.7); ABSOLUTE MONOCYTES (AUTO) 0.6 10^3/uL (0.1-1.4); ABSOLUTE NEUT (AUTO) 4.6 10^3/uL (1.7-8.2); BASOPHILS % (AUTO) 0.3 % (0-2); EOSINOPHILS % (AUTO) 0.4 % (0-6); HEMATOCRIT 32.7 % (36.0-47.0); HEMOGLOBIN 10.9 g/dL (12.0-15.5); LYMPHOCYTES % (AUTO) 32.1 % (13-45); MEAN CORPUSCULAR HEMOGLOBIN 26.4 pg (27.0-33.4); MEAN CORPUSCULAR HGB CONC 33.4 g/dL (32.0-36.0); MEAN CORPUSCULAR VOLUME 79 fl (80-97); MONOCYTES % (AUTO) 7.7 % (3-13); PLATELET COUNT 242 10^3/uL (150-450); RED BLOOD COUNT 4.14 10^6/uL (3.72-5.28); RED CELL DISTRIBUTION WIDTH 14.4 % (11.5-14.0); SEGMENTED NEUTROPHILS % (AUTO) 59.5 % (42-78); TOTAL CELLS COUNTED % (AUTO) 100 %; WHITE BLOOD COUNT 7.7 10^3/uL (4.0-10.5)
[2019-10-01] MEDS ORDERED: OXYTOCIN 10 UNIT/ML VIAL ONE (22:19)
[2019-10-01] MEDS ORDERED: LIDOCAINE 1% INJ-PF (10 MG/ML) 30 ML SDV ONE (22:19)
[2019-10-01] MEDS ORDERED: MISOPROSTOL 0.2 MG TABLET ONE (22:19)
[2019-10-01] MEDS ORDERED: PENICILLIN G-K 5 MILLION UNIT VIAL ONE (22:19)
[2019-10-01] MEDS ORDERED: OXYTOCIN/0.9 % SODIUM CHLORIDE 30 UNIT/500 ML RTUINJ ONE (22:19)
--- NOTE | 2019-10-01 23:06 | Admission Physical ---
Datetime Report Generated by CPN: 10/01/2019 23:06 CURRENT ADMISSION Chief Complaint: Other Indication for Induction: Other Admit Impression : Ruptured Membranes Admit Plan: Admit to Unit; Initiate Labor Protocol ALLERGIES Medication Allergies: No Medication Allergies: No Known Allergies (10/08/2018) Latex: No Latex Allergies OBSTETRICAL HISTORY EDC: 10/19/2019 00:00 : 2 Para: 1 Term: 1 : 0 SAB: 0 IAB: 0 Ectopic: 0 Livin Cesareans: 0 VBACs: 0 Multiple Births: 0 Gestational Diabetes: No Rh Sensitization: No Incompetent Cervix: No MARLENE: No Infertility: No ART Treatment: No Uterine Anomaly: No IUGR: No Hx Previous C/S: No Macrosomia: No Hx Loss/Stillborn: No PIH: No Hx : No Placenta Previa/Abruption: No Depression/PP Depression: Yes PTL/PROM: No Post Hemorrhage: No Current Procedures: Ultrasound; NST Obstetrical History Comments: G1 Sep 2018 Boy G2 Current SEE RECORDS Alcohol: No Marijuana : Yes Marijuana Frequency: Occasional Last Used: 08/04/2019 00:00 Marijuana Comments: Pt staes she only used because she couldn't eat. Cocaine: No Other Illicit Drugs: No Cigarettes: Former Smoker. [id number] Cigarette Comments: Pt states she stopped smoking 2 years ago and would smoke 3 cigarettes a day MEDICAL HISTORY Diabetes: No Blood Transfusion: No Pulmonary Disease (Asthma, TB): No Breast Disease: No Hypertension: No Lock Fitter Surgery: No Heart Disease: No Hosp/Surgery: Yes Autoimmune Disorder: No Anesthetic Complications: No Kidney Disease: No Abnormal Pap Smear: No Neuro/Epilepsy: No Psychiatric Disorders: No Other Medical Diseases: No Hepatitis/Liver Disease: No Significant Family History: No Varicosities/Phlebitis: No Trauma/Violence : No Thyroid Dysfunction: No Medical History Comments: PP depression with last baby, and hospitalized with last child. INFECTIOUS HISTORY Gonorrhea: No Genital Herpes: No Chlamydia: No Tuberculosis: No Syphilis: No Hepatitis: No HIV/AIDS Exposure: No Rash or Viral Illness: No HPV: No PHYSICAL EXAM General: Normal HEENT: Normal Neurologic: Normal Thyroid: Normal Heart: Normal Lungs: Normal Breast: Deferred Back: Normal Abdomen: Normal Genitourinary Exam: Normal Extremities: Normal DTRs: Normal Pelvic Type: Adequate FETUS A EGA: 37.3 PLANS FOR LABOR AND DELIVERY Labor and Delivery: None Pain Management: Epidural Feeding Preference: Breast Benefit of Breast Feed Discussed: Yes Circumcision: N/A INFORMED CONSENT Signature: with User ID: [email or web address]
[2019-10-02] MEDS: PENICILLIN G POTASSIUM 2,500,000 UNIT in DEXTROSE 5%-WATER 50 ML IV SCH ×3 (02:46→10:53)
[2019-10-02] MEDS ORDERED: OXYTOCIN/0.9 % SODIUM CHLORIDE 30 UNIT/500 ML RTUINJ IV PRN ×2 (05:00→10:26)
[2019-10-02] MEDS ORDERED: ONDANSETRON HCL INJ/PF 4 MG/2 ML SDV ONE (07:10)
[2019-10-02] MEDS ORDERED: ONDANSETRON HCL INJ/PF 4 MG/2 ML SDV IV ONE (07:11)
[2019-10-02] MEDS ORDERED: NALBUPHINE HCL INJ 10 MG/1 ML AMPULE IV ONE (07:12)
[2019-10-02] MEDS ORDERED: NALBUPHINE HCL INJ 10 MG/1 ML AMPULE ONE (07:13)
[2019-10-02] MEDS ORDERED: EPHEDRINE SULFATE INJ 50 MG/1 ML AMPULE ONE (08:37)
[2019-10-02] MEDS ORDERED: ROPIVACAINE HCL 0.2% INJ/PF (2 MG/ML) 20 ML SDV ONE (08:38)
[2019-10-02] MEDS ORDERED: FENTANYL/BUPIVACAINE/NS/PF 300 MCG/150 ML RTUINJ EPI ONE (08:38)
[2019-10-02] MEDS ORDERED: DIPHENHYDRAMINE HCL 25 MG CAPSULE PO PRN (10:26)
[2019-10-02] MEDS ORDERED: MAGNESIUM HYDROXIDE SUSP 30 ML UDCUP PO PRN (10:26)
[2019-10-02] MEDS ORDERED: DIPH/PERTUSS(ACELL)/TETANUS VAC/PF 0.5 ML SYR (>=10YO) IM PRN (10:26)
[2019-10-02] MEDS ORDERED: BENZOCAINE/MENTHOL AEROSOL SPRAY 56 ML TOP PRN (10:26)
[2019-10-02] MEDS ORDERED: DIBUCAINE 1% OINTMENT 28 GM TP PRN (10:26)
[2019-10-02] MEDS ORDERED: PROMETHAZINE HCL INJ 25 MG/1 ML VIAL IV PRN (10:26)
[2019-10-02] MEDS ORDERED: GLYCERIN/WITCH HAZEL LEAF 1 EACH MED..WIPE TP PRN (10:26)
[2019-10-02] MEDS ORDERED: PROMETHAZINE HCL 25 MG TABLET PO PRN (10:26)
[2019-10-02] MEDS ORDERED: ACETAMINOPHEN 650 MG SUPP.RECT PR PRN (10:26)
[2019-10-02] MEDS ORDERED: NA PHOS,M-B/NA PHOS,DI-BA (ADULT) 133 ML ENEMA PR PRN (10:26)
[2019-10-02] MEDS ORDERED: MEASLES,MUMPS&RUBELLA VACC/PF 0.5 ML VIAL SUBCUT PRN (10:26)
[2019-10-02] MEDS ORDERED: PROMETHAZINE HCL 25 MG SUPP.RECT PR PRN (10:26)
[2019-10-02] MEDS ORDERED: PSEUDOEPHEDRINE HCL 30 MG TABLET PO PRN (10:26)
--- NOTE | 2019-10-02 10:35 | Warning Signs in Babies ---
VOD Warning Signs Datetime Report Generated by [facility]: 10/02/2019 10:34 VOD#608 -Warning Signs in Babies: Needs to be viewed. (10/01/2019 20:06:Ana Shultz RN)
[2019-10-02] MEDS ORDERED: MISOPROSTOL 0.1 MG TABLET PR ONE (10:47)
--- NOTE | 2019-10-02 11:54 | Birth Certificate Data ---
Cert Data Datetime Report Generated by CPN: 10/02/2019 11:54 CERTIFICATE DATA 47a. Care: Yes (10/01/2019 20:06:Charmaine Brown RN) 47b. Date of First Visit: 06/28/2019 00:00 (10/01/2019 20:06:Charmaine Brown RN) 47c. Date of Last Visit: 09/30/2019 00:00 (10/01/2019 20:06:Charmaine Brown RN) 47d. Number of Visits: 6 (10/01/2019 20:06:Charmaine Brown RN) 48a. Number of Prev Live Births: 1 (10/01/2019 20:06:Charmaine Brown RN) 48b. Now Livin (10/01/2019 20:06:Charmaine Brown RN) 48c. Live Births Now : 0 (10/01/2019 20:06:QS system process) 48e. Losses: 0 (10/01/2019 20:06:Charmaine Brown RN) RISK FACTORS IN THIS 49a. Diabetes: No (10/01/2019 20:06:Charmaine Brown RN) 49b. Hypertension: No (10/01/2019 20:06:Charmaine Brown RN) 49c. Previous Births: 0 (10/01/2019 20:06:Charmaine Brown RN) 49d. Stillborns: No (10/01/2019 20:06:Charmaine Brown RN) 49d. IUGR: No (10/01/2019 20:06:Charmaine Brown RN) 49e. Infertility Treatment: No (10/01/2019 20:06:Charmaine Brown RN) 49f. Previous Cesareans: 0 (10/01/2019 20:06:Charmaine Brown RN) Mother's Height 50b. Height Inches: 65 (10/01/2019 19:42:QS system process) Mother's Weight 51b. Weight at Time of Delivery: 211 (10/01/2019 19:42:QS system process) Infections Present/Treated 53a. Gonorrhea: No (10/01/2019 20:06:Charmaine Brown RN) Results this Hospital Visit : Negative (10/01/2019 20:06:Charmaine Brown RN) 53b. Syphilis: No (10/01/2019 20:06:Charmaine Brown RN) Results this Hospital Visit: NONREACTIVE (10/01/2019 21:22:QS system process) 53c. Chlamydia: No (10/01/2019 20:06:Charmaine Brown RN) 53d. Hepatitis B: No (10/01/2019 20:06:Charmaine Brown RN) Results this Hospital Visit: Negative (10/01/2019 20:06:Charmaine Brown RN) 53e. Hepatitis C: Negative (10/01/2019 20:06:Charmaine Brown RN) 53i. Date Tested: 07/01/2019 00:00 (10/01/2019 20:06:Charmaine Brown RN) Obstetric Procedures 54a, b, c. Obstetric Procedures: Ultrasound; NST (10/01/2019 20:06:Charmaine Brown RN) Cigarette Smoking 55a. 3 Months Before Preg - Ci (10/01/2019 20:06:Charmaine Brown RN) 55a. Packs: 0 (10/01/2019 20:06:Charmaine Brown RN) 55b. 1st Trimester of Preg- Ci (10/01/2019 20:06:Charmaine Brown RN) 55b. Packs: 0 (10/01/2019 20:06:Charmaine Brown RN) 55c. 2nd Trimester of Preg- Ci (10/01/2019 20:06:Charmaine Brown RN) 55c. Packs: 0 (10/01/2019 20:06:Charmaine Brown RN) 55d. 3rd Trimester of Preg- Ci (10/01/2019 20:06:Charmaine Brown RN) 55d. Packs: 0 (10/01/2019 20:06:Charmaine Brown RN) Onset of Labor 56a. PROM >12 Hrs: 16.17 (10/01/2019 21:58:QS system process) 56b. Precipitous Labor <3 Hrs: 3 (10/01/2019 20:06:QS system process) 56c. Prolonged Labor > 20 Hrs: 3 (10/01/2019 20:06:QS system process) 57a. Induction of Labor: Augmentation (10/01/2019 20:06:Dina Shankar RN) 57c. Non-Vertex Presentation A: Vertex (10/01/2019 20:06:Dina Shankar RN) 57d. Steroids - Lung Mat: None (10/01/2019 20:06:Ana Shultz RN) 57d. Steroids - Lung Mat: Not Applicable (10/01/2019 20:06:Ana Shultz RN) 57e. Antibiotics During Labor: 0615 (10/01/2019 20:06:Dina Shankar RN) 57g. Moderate/Heavy Meconium: Clear (10/01/2019 21:58:Charmaine Brown RN) 57h. Intolerance of Labor: N/A (10/01/2019 20:06:Ana Shultz RN) : N/A (10/01/2019 20:06:Ana Shultz RN) 57i. Epidural/Spinal Anesthesia: Epidural (10/01/2019 20:06:Ana Shultz RN) Method of Delivery 58a. Forceps - Unsuccessful A: N/A (10/01/2019 20:06:Dina Shankar RN) 58b. Vacuum - Unsuccessful A: N/A (10/01/2019 20:06:Dina Shankar RN) 58c. Presentation at 58c. Presentation at - A : Vertex (10/01/2019 20:06:Dina Shankar RN) 58c. Presentation at - A : N/A (10/01/2019 20:06:Dina Shankar RN) 58c. Presentation at - A : Cephalic (10/02/2019 04:41:Charmaine Brown RN) Final Route and Method of Del 58d. Baby A Route/Delivery: Vaginal (10/02/2019 10:10:Ana Shultz RN) 58e. Trial of Labor Attempted A: N/A (10/01/2019 20:06:Dina Shankar RN) Maternal Morbidity 59b. 3rd or 4th Degree Lacs: None (10/01/2019 20:06:Ana Shultz RN) 59b. 3rd or 4th Degree Lacs: n/a (10/01/2019 20:06:Tri Gil [facility]) Birthweight Baby A: 2574 (10/01/2019 20:06:Ana Shultz RN) 60a. Pounds : 5 (10/01/2019 20:06:QS system process) 60b. Ounces: 11 (10/01/2019 20:06:QS system process) 61. GA at Delivery Baby A: 37.4 (10/01/2019 20:06:Dina Shankar RN) : Early Term- 37- 38.6 Weeks (10/01/2019 20:06:QS system process) 62a. 5 Minute Baby A: 9 (10/01/2019 20:06:QS system process)
--- NOTE | 2019-10-02 11:54 | Delivery Summary ---
Del Sum A-C Datetime Report Generated by CPN: 10/02/2019 11:54 DELIVERY PERSONNEL DELIVERY PERSONNEL: [id number] Delivery Doctor:: Tri Gil CNM Labor and Delivery Nurse:: Ana Shultz RNsenior auditor Nurse:: BALJINDER Borjas Nursery Nurse:: JENNIFER Clark Tech/CLINICAL CARE LEADER: Malu Mustafa CNA II MATERNAL INFORMATION Delivery Anesthesia: None Medications After Delivery: Pitocin 30 Units in 500ml NS/D5W; Cytotec 1000mcg Per Rectum/Vagina Delivery QBL: 25 Maternal Complications: None Provider Comments: pt progressed to c/c/1 after epidural placement, began pushing and quickly delivered the head at which time pt stopped pushing. Encouraged to continue pushing with contraction and despite not pushing baby delivered though nuchal x1 and compound right arm. Baby with vigorous respiratory effort and cry with tactile stimulation at . Baby placed on maternal abdomen, cord allowed to stop pulsating then clamped x2 and cut by FOB. Cord blood obtained (3vc and short cord noted), placenta delivered spontaneously intact, fundus firm at U, bleeding stable. Vaginal and perineal inspection revealed no lacerations or abrasions. Mother and baby stable, baby skin to skin with father at this time LABOR SUMMARY EDC: 10/19/2019 00:00 No. Babies in Womb: 1 Labor Anesthesia: Epidural LABOR INFORMATION Reason for Induction: Not Applicable Onset of Labor: 10/02/2019 07:10 Complete Dilatation: 10/02/2019 10:02 Oxytocin: Augmentation Group B Beta Strep: unknown Antibiotics # of Doses: 2 Antibiotics Time of Last Dose: 0615 Name of Antibiotic Given: PCN Steroids Given: None Reason Steroids Not Administered: Not Applicable MEMBRANES Membranes Rupture Method: Spontaneous Rupture of Membranes: 10/01/2019 18:00 Length of Rupture (hr): 16.17 Amniotic Fluid Color: Clear Amniotic Fluid Amount: Small Amniotic Fluid Odor: Normal STAGES OF LABOR Stage 1 hr: 2 Stage 1 min: 52 Stage 2 hr: 0 Stage 2 min: 8 Stage 3 hr: 0 Stage 3 min: 5 Total Time in Labor hr: 3 Total Time in Labor min: 5 VAGINAL DELIVERY Episiotomy: None Laceration #1: None Laceration Extension #1: N/A Other Laceration: n/a Laceration Repair: Not Applicable Laceration Repair Note: n/a Initial Vag Sponge Count: N/A Final Vag Sponge Count: N/A Initial Vag Sharps Count: N/A Final Vag Sharps Count: N/A Sponge Count Correct: Yes Sharps Count Correct: Yes CSECTION DELIVERY Primary Indication: N/A Secondary Indication: N/A CSection Incidence: N/A Labor: N/A Elective: N/A CSection Incision: N/A BABY A INFORMATION Delivery Date/Time: 10/02/2019 10:10 Method of Delivery: Vaginal Nurse Controlled Delivery: No Born in Route : No : N/A Forceps: N/A Vacuum Extraction: N/A Shoulder Dystocia : No PRESENTATION/POSITION BABY A Presentation: Cephalic Cephalic Presentation: Vertex Vertex Position: Right Occipital Anterior Breech Presentation: N/A PLACENTA INFORMATION BABY A Placenta Delivery Time : 10/02/2019 10:15 Placenta Method of Delivery: Spontaneous Placenta Status: Delivered SCORES BABY A Heart Rate 1 min: >100 bpm Resp Effort 1 min: Good Cry Reflex Irritability 1 min: Cough or Sneeze or Pulls Away Muscle Tone 1 min: Active Motion Color 1 min: Blue/Pale Resuscitation Effort 1 min: Tactile Stimulation SCORE 1 MIN: 8 Heart Rate 5 min: >100 bpm Resp Effort 5 min: Good Cry Reflex Irritability 5 min: Cough or Sneeze or Pulls Away Muscle Tone 5 min: Active Motion Color 5 min: Body [place], Extremities Blue Resuscitation Effort 5 min: Tactile Stimulation SCORE 5 MIN: 9 INFANT INFORMATION BABY A Gestational Age at Delivery: 37.4 Gestational Status: Early Term- 37- 38.6 Weeks Infant Outcome : Liveborn Infant Condition : Stable Sex: Female IDENTIFICATION BABY A Verification Date/Time: 10/02/2019 10:35 ID Band Number: [id number] Mother's Name Verified: Yes Infant RN Verifying : Nery,RN Additional Verifying Personnel: JENNIFER Sun WEIGHT/LENGTH BABY A Infant Birthweight (gm): 2574 Infant Weight (lb): 5 Infant Weight (oz): 11 Length (in): 18.00 Infant Length (cm): 45.72 CORD INFORMATION BABY A No. Cord Vessels: 3 Nuchal Cord : Around Neck x1, Tight Nuchal Cord- Other: short cord. compound hand Cord Blood Taken: Yes-For Storage (Mom's Blood type +) Infant Suction: None ASSESSMENT BABY A Complications: None Physical Findings at Delivery: Within Normal Limits Respirations: Appears Normal Skin to Skin: Yes Skin to Skin Time (min): 60 Power Shovel Engineer/ALS Called : No Infant Care By: K Dandrem Transferred To: Remains with Mother SIGNATURES Assignment: Luna Hairston MD Signature: with User ID: Joseph : with User ID: Joseph
[2019-10-02] MEDS: IBUPROFEN 800 MG TABLET PO SCH ×3 (14:05→22:09)
[2019-10-02] MEDS: DOCUSATE SODIUM 100 MG CAPSULE PO SCH (17:29)
[2019-10-02] MEDS: FERROUS SULFATE 325 MG TABLET PO SCH (17:29)
[2019-10-02] MEDS: FAMOTIDINE 20 MG TABLET PO SCH (22:09)
[2019-10-03] MEDS: IBUPROFEN 800 MG TABLET PO SCH ×3 (05:34→21:55)
[2019-10-03 07:43] LABS: HEMATOCRIT 29.3 % (36.0-47.0); HEMOGLOBIN 9.9 g/dL (12.0-15.5); MEAN CORPUSCULAR HEMOGLOBIN 26.6 pg (27.0-33.4); MEAN CORPUSCULAR HGB CONC 33.8 g/dL (32.0-36.0); MEAN CORPUSCULAR VOLUME 79 fl (80-97); PLATELET COUNT 206 10^3/uL (150-450); RED BLOOD COUNT 3.73 10^6/uL (3.72-5.28); RED CELL DISTRIBUTION WIDTH 14.5 % (11.5-14.0); WHITE BLOOD COUNT 9.3 10^3/uL (4.0-10.5)
--- NOTE | 2019-10-03 09:49 | PDOC PROGRESS REPORT ---
Subjective-OB Progress Note for:: 10/03/19 Physical Exam (OB) Vital Signs: Temp Pulse Resp BP Pulse Ox 98.4 F 72 18 131/53 H 100 10/03/19 08:00 10/03/19 08:00 10/03/19 08:00 10/03/19 08:00 10/03/19 08:00 Intake & Output 10/02/19 10/03/19 10/04/19 06:59 06:59 06:59 Weight 96 kg - PIH/Pre-Eclampsia Clonus: Negative Headache: Absent Epigastric Pain: No Visual Changes: No - Maternal Morbidity 59. Maternal Morbidity (serious complications experinced by the mother associated with labor and delivery: None of the above - Lochia Lochia Amount: Small 10-25 ml Lochia Color: Rubra/Red - Abdomen Description: Soft, Round Hernia Present: No Bowel Sounds: Normoactive Flatus Presence: Present Stool: Yes Fundal Description: Firm, Midline Fundal Height: u/u - u/2 Objective-Diagnostic Laboratory: 10/03/19 07:25 10/03/19 07:25 WBC 9.3 RBC 3.73 Hgb 9.9 L Hct 29.3 L MCV 79 L MCH 26.6 L MCHC 33.8 RDW 14.5 H Plt Count 206 Assessment and Plan(PN) - Time Spent with Patient Time with patient: Less than 15 minutes Medications reviewed and adjusted accordingly: Yes - Disposition Anticipated Discharge Disposition: Home, Self Care Anticipated Discharge Timeframe: within 36 hours
[2019-10-03] MEDS: FERROUS SULFATE 325 MG TABLET PO SCH ×2 (10:25→18:20)
[2019-10-03] MEDS: FAMOTIDINE 20 MG TABLET PO SCH ×2 (10:25→21:55)
[2019-10-03] MEDS: SENNOSIDES/DOCUSATE 8.6-50 MG 1 EACH TABLET PO SCH (10:25)
[2019-10-03] MEDS: PRENATAL VITAMIN W DHA CAPSULE PO SCH (10:25)
[2019-10-03] MEDS: DOCUSATE SODIUM 100 MG CAPSULE PO SCH ×2 (10:25→18:20)
[2019-10-04] MEDS: IBUPROFEN 800 MG TABLET PO SCH (05:44)
[2019-10-04] MEDS: FAMOTIDINE 20 MG TABLET PO SCH (09:32)
[2019-10-04] MEDS: PRENATAL VITAMIN W DHA CAPSULE PO SCH (09:32)
[2019-10-04] MEDS: DOCUSATE SODIUM 100 MG CAPSULE PO SCH (09:33)
[2019-10-04] MEDS: FERROUS SULFATE 325 MG TABLET PO SCH (09:33)
[2019-10-04] MEDS: SENNOSIDES/DOCUSATE 8.6-50 MG 1 EACH TABLET PO SCH (09:33)
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
[2019-10-04 10:48] VITALS: BP 136/78
== END 2019-10-04 13:36 | disposition home or self-care (01) | DRG 807 ==
LOC: LC 19:19 → LR 20:40 → 2S 10-02 12:02
PROVIDERS: ADMIT Obstetrics & Gynecology Gynecology; ATTEND Obstetrics & Gynecology Gynecology
PROC: 10E0XZZ Delivery of Products of Conception, External Approach (ICD-10-PCS; principal; 2019-10-02)
PROC: 3E0234Z Introduction of Serum, Toxoid and Vaccine into Muscle, Percutaneous Approach (ICD-10-PCS; 2019-10-04)
DX: O99.324 Drug use complicating childbirth (principal); Z37.0 Single live birth; O69.1XX0 Labor and delivery complicated by cord around neck, with compression, not applicable or unspecified; F12.90 Cannabis use, unspecified, uncomplicated; O32.6XX0 Maternal care for compound presentation, not applicable or unspecified; O99.02 Anemia complicating childbirth; D57.3 Sickle-cell trait; O69.3XX0 Labor and delivery complicated by short cord, not applicable or unspecified; Z3A.37 37 weeks gestation of pregnancy; Z23 Encounter for immunization; Z62.810 Personal history of physical and sexual abuse in childhood
CPT/HCPCS: 1967; 36415; 80307; 81005; 84112; 85025; 85027; 86592; 86850; 86900; 86901; 90715; 94760; C1758; J2300; J2405; J2540; J2590; J2795; J3010; J3490; J7060